=== PATIENT | male | born 1995 | race Caucasian/White ===

== ENCOUNTER 2017-04-28 15:09 | Emergency (ER) | payer MEDICAID ==
[~2017-04-28] VITALS: Ht 188 cm; Wt 89.7 kg
[2017-04-28 15:13] VITALS: BP 128/82
[2017-04-28] MEDS ORDERED: DEXAMETHASONE 4 MG TABLET PO STA (15:27)
[2017-04-28] MEDS ORDERED: IBUPROFEN 800 MG TABLET PO STA (15:27)
[2017-04-28] MEDS ORDERED: DEXAMETHASONE 4 MG TABLET ONE (15:33)
[2017-04-28] MEDS ORDERED: IBUPROFEN 200 MG TABLET ONE (15:33)
== END 2017-04-28 15:59 | disposition home or self-care (01) ==
LOC: ED 15:30
DX: J02.0 Streptococcal pharyngitis (principal)
CPT/HCPCS: 99283